=== PATIENT | female | born 1985 | race Caucasian/White ===

== ENCOUNTER 2016-06-09 12:28 | Emergency (ER) | payer MEDICAID, SELFPAY ==
[2016-06-09] MEDS ORDERED: Ketorolac Tromethamine 60 MG/2 ML VIAL ONE (12:56)
[2016-06-09 13:02] LABS: Bilirubin Negative (Negative); Blood, Urine Trace (Negative); Clarity Clear (Clear); Glucose, Urine (Dipstick) Negative (Negative); Leukocyte Negative (Negative); Nitrite Negative (Negative); Protein, Urine (Dipstick) Negative (Neg-Trace)
[2016-06-09 13:07] LABS: Specific Gravity, Urine 1.025 (1.002-1.036)
[2016-06-09 13:13] LABS: Bacteria/HPF Rare-Few HPF (None Seen); Crystals/HPF None Seen HPF (Negative); Hyaline Casts/LPF NONE SEEN LPF (0-3 Hyaline); Other Casts/LPF None Seen LPF (0-3 Hyaline); Oval Fat Bodies/HPF None Seen HPF (None Seen); RBC/HPF 0-3 HPF (0-3); Renal Epithelial None Seen HPF (0-3); Sperm/HPF None Seen HPF (None Seen); Squamous Epithelial 0-3 HPF (0-3); Transitional Epithelial NONE SEEN HPF (0-3); Trichomonas/HPF None Seen HPF (None Seen); WBC/HPF 0-3 HPF (0-3); Yeast-All Forms None Seen HPF (None Seen)
[2016-06-09] MEDS ORDERED: Fentanyl 100 MCG/2 ML VIAL ONE (13:57)
[2016-06-09 14:06] LABS: #Basophils 0.1 thou/uL (0.0-0.2); #Eosinphils 0.3 thou/uL (0.0-0.7); #Lymphocytes 2.9 thou/uL (1.20-3.40); #Monocytes 0.8 thou/uL (0.11-0.59); #Neutrophils 5.6 thou/uL (1.40-6.50); %Basophils 0.9 % (0.0-1.0); %Eosinophils 3.4 % (0.0-10.0); %Lymphocytes 30.4 % (21.0-51.0); %Monocytes 7.8 % (0.0-10.0); %Neutrophils 57.6 % (42.0-75.0); Hemoglobin 13.9 g/dL (12.0-16.0); Mean Corpuscular Hemoglobin 30.8 pg (27.0-31.0); Mean Corpuscular Volume 93.5 fl (81.0-99.0); Mean Platelet Volume 8.1 fL (7.4-10.4); Platelet Count 205 thou/uL (130-400); RBC Distribution Width 13.2 % (11.5-14.5); Red Blood Cell (RBC) Count 4.52 mill/uL (4.20-5.40); White Blood Cell (WBC) Count 9.7 thou/uL (4.8-10.8)
[2016-06-09 14:20] LABS: ALT (SGPT) 10 U/L (0-55); AST (SGOT) 14 U/L (5-34); Albumin 4.3 g/dL (3.5-5.0); Alkaline Phosphatase 49 U/L (40-150); Anion Gap 12 mmol/L (10-20); BUN (Urea Nitrogen) 10 mg/dL (7.0-18.7); Bilirubin, Total 0.3 mg/dL (0.2-1.2); Calc. Creatinine Clearance 0 mL/min (70-130); Calcium 9.3 mg/dL (7.8-10.44); Carbon Dioxide 27 mmol/L (22-29); Chloride 106 mmol/L (98-107); Estimated GFR-MDRD 86; Globulin 3.5 g/dL (2.4-3.5); Glucose 93 mg/dL (70-105); Lipase 21 U/L (8-78); Potassium 3.7 mmol/L (3.5-5.1); Protein, Total 7.8 g/dL (6.0-8.3); Sodium 141 mmol/L (136-145)
--- NOTE | 2016-06-09 21:38 | CT ---
CT ABDOMEN AND PELVIS WITH OUT CONTRAST 06/09/[address] of the abdomen and pelvis was done without oral or IV contrast in a renal stone protocol t o evaluate left flank pain which radiates down the back. Axial slices were acquired, then coronal and sagittal reconstructions were done. The lung bases show no infiltrate or effusion. On the top slice, there is a questionable 5 mm nodule in the left lower lobe. I cannot tell if it is an actual nodule or if it is the end of a vessel levi t started on an slice above the highest one present. Statistically, its significance in this age julien up is low. The liver, spleen, pancreas, adrenal glands, gallbladder, and abdominal aorta were unremarkable with in the limitations of a noncontrast study. There is a large 8 x 6 x 5 cm mass that originates from the upper pole of the left kidney. It is rat her homogeneous in density and has smooth margins, but calcifications are present around its periphe ry. In this age group, the odds are highest that it is a cyst; however, ultrasound must be done to b e sure it is cystic and not solid. It is large enough that it is pushing the left kidney anteriorly. No individual renal calculi are seen in either kidney, though there is some increased density in th e renal pyramids, so the possibility of calculi forming down the line is raised. The bowel is nondistended. There is no sign of obstruction, inflammatory change, free air, or free f luid. CT of the pelvis showed a 2.7 cm rounded cystic area on the left side of the pelvis on slice 62 thro ugh 64. I cannot be certain if it is connected to the left ovary or not. It seems slightly high to b e connected. No free fluid is seen. There are no inflammatory changes in the pelvis. Regarding the lumbar spine, I see no obvious protruding discs to explain any radicular pain. The bon y structures appear intact. IMPRESSION: 1. 8 x 6 x 5 cm left renal mass with peripheral calcifications that is pushing the kidney anter iorly. Ultrasound recommended to determine if it is cystic or solid. 2. At least one small cystic area in the left side of the pelvis, possibly an adnexal origin, t binu it is a little higher than expected. Pelvic ultrasound might be prudent. POS: HOME
--- NOTE | 2016-06-09 21:43 | ULT ---
ULTRASONOGRAPHY OF THE LEFT KIDNEY 06/09/16 Ultrasound of the left kidney was done after a mass was found attached to this kidney on CT. The exa m was accomplished to determine if this was a cystic or solid structure. A large cystic structure or iginates from the upper portion of the left kidney. It is mostly cystic on the inside, though there may be a small amount of debris. Internally, it is mostly smooth but not perfectly so. There are jose angel e coarse calcifications seen along its margin that interfaces with the kidney itself. Maximal transv erse dimension measured was 8.3 cm. The left kidney itself showed no hydronephrosis. IMPRESSION: 8.3 cm cyst arising from the left kidney with coarse peripheral calcifications. It does not meet the criteria of an absolutely simple cyst, though mostly so. Given the pain that the patient is experie ncing and how it is causing some displacement of this left kidney, urological referral is strongly r ecommended to determine correct followup for this finding. Findings for this scan as well as all others done at the same time, plus recommendation for urologic al referral, called to Dr. Dorsey at 1345 on 06/09/16. POS: HOME
--- NOTE | 2016-06-09 21:57 | ULT ---
PELVIC ULTRASOUND WITH ENDOVAGINAL IMAGING 06/09/16 Ultrasonography of the pelvis was performed for evaluation of cystic change seen on a CT scan done e jamil today. Documentary images and worksheets were provided and reviewed. The uterus was normal in appearance and measured 9.9 x 5.5 x 5.5 cm. The endometrium was a normal 7 mm thick. The right ovary was 3.5 cm long, appeared normal, and had good blood flow. The left ovary was 3.1 cm long. Internally, three appears to be a 3.1 cm cyst. Some of the echoes seen in it are artifactual, however, some may not be. I cannot rule out some debris within that cyst. On the CT scan, there was a cystic area that seemed a little higher than expected compared to the adnexa, but no additional c yst was seen on these images. I know the patient has a history of endometriosis, that could potentia lly enter the differential for the former finding. IMPRESSION: 3.1 cm cystic area in the left ovary with some small amounts of interna debris. Followup by ultrasou nd after several cycles and/or gynecological referral for followup might be prudent. POS: HOME
== END 2016-06-09 15:25 | disposition home or self-care (01) ==
LOC: BURERS 12:28
DX: N28.1 Cyst of kidney, acquired (principal); N83.202 Unspecified ovarian cyst, left side; F32.9 Major depressive disorder, single episode, unspecified; F17.210 Nicotine dependence, cigarettes, uncomplicated
CPT/HCPCS: 36415; 74176; 76775; 76856; 80053; 81003; 81015; 83690; 85025; 96372; 96374; J1885; J3010

== ENCOUNTER 2016-11-21 08:47 | Emergency (ER) | payer OTHER, SELFPAY | END 2016-11-21 09:08 | disposition home or self-care (01) | LOC: BURERS 08:47 | DX: B34.9 Viral infection, unspecified (principal); F32.9 Major depressive disorder, single episode, unspecified; F17.210 Nicotine dependence, cigarettes, uncomplicated | CPT/HCPCS: 99283 ==

== ENCOUNTER 2017-11-16 13:47 | Emergency (ER) | payer OTHER ==
--- NOTE | 2017-11-16 18:37 | RAD ---
LEFT HAND THREE VIEWS 11/16/17 No fracture, dislocation, or joint abnormality was seen. The carpal bones were unremarkable in appear ance. The joints appear normal. IMPRESSION: No significant findings. POS: HOME
--- NOTE | 2017-11-16 18:45 | RAD ---
LEFT WRIST THREE VIEWS: 11/16/17 No fracture or carpal abnormality was seen. The carpal relationships seem normal. The distal radius a nd ulna showed no acute change. There is a little cortical thickening along the interosseous margin o f the distal ulna, possibly indicative of an old injury, but certainly not an acute one. IMPRESSION: No acute finding. POS: HOME
== END 2017-11-16 14:42 | disposition home or self-care (01) ==
LOC: BURERS 13:47
DX: S60.212A Contusion of left wrist, initial encounter (principal); F32.9 Major depressive disorder, single episode, unspecified; F17.210 Nicotine dependence, cigarettes, uncomplicated; Y04.0XXA Assault by unarmed brawl or fight, initial encounter
CPT/HCPCS: 29125

== ENCOUNTER 2018-01-19 15:05 | Emergency (ER) | payer OTHER ==
[2018-01-19] MEDS ORDERED: methylPREDNISolone Sod Succ/PF 125 MG/2 ML VIAL ONE (15:16)
[2018-01-19] MEDS ORDERED: Famotidine 20 MG TAB ONE (15:26)
== END 2018-01-19 16:13 | disposition home or self-care (01) ==
LOC: BURERS 15:05
DX: T78.1XXA Other adverse food reactions, not elsewhere classified, initial encounter (principal); F17.210 Nicotine dependence, cigarettes, uncomplicated; X58.XXXA Exposure to other specified factors, initial encounter
CPT/HCPCS: 96361; 96374; J2930

== ENCOUNTER 2018-06-13 12:22 | Emergency (ER) | payer OTHER ==
--- NOTE | 2018-06-13 21:23 | RAD ---
RIGHT HAND THREE VIEWS 06/13/18 No fracture was seen. The various joints appear normal, as do the carpal bones. IMPRESSION: No acute findings. POS: HOME
== END 2018-06-13 13:15 | disposition home or self-care (01) ==
LOC: BURERS 12:22
DX: S63.501A Unspecified sprain of right wrist, initial encounter (principal); F17.210 Nicotine dependence, cigarettes, uncomplicated; W18.30XA Fall on same level, unspecified, initial encounter

== ENCOUNTER 2019-12-21 12:51 | Emergency (ER) | payer BC, OTHER ==
[2019-12-21 13:50] LABS: #Basophils 0.1 thou/uL (0.0-0.2); #Eosinphils 0.3 thou/uL (0.0-0.7); #Lymphocytes 2.9 thou/uL (1.20-3.40); #Monocytes 0.7 thou/uL (0.11-0.59); #Neutrophils 3.8 thou/uL (1.40-6.50); %Basophils 1.4 % (0.0-1.0); %Eosinophils 3.6 % (0.0-10.0); %Lymphocytes 37.7 % (21.0-51.0); %Monocytes 9.3 % (0.0-10.0); %Neutrophils 48.1 % (42.0-75.0); Hemoglobin 13.8 g/dL (12.0-16.0); Mean Corpuscular Volume 96.7 fL (78.0-98.0); Mean Platelet Volume 8.9 fL (7.4-10.4); Platelet Count 225 thou/uL (130-400); RBC Distribution Width 12.5 % (11.5-14.5); Red Blood Cell (RBC) Count 4.59 mill/uL (4.20-5.40); White Blood Cell (WBC) Count 7.8 thou/uL (4.8-10.8)
[2019-12-21 14:03] LABS: Base Excess-Venous -0.7 mmol/L (-2.0 to 3.0); CO2 Tension (PvCO2) 43.9 mmHg (40.0-50.0); Calcium, Ionized 1.15 mmol/L (See Comments:); Chloride 107 mmol/L (98-107); Hemoglobin - Calc 14.9 g/dL (12.0-16.0); Potassium 3.8 mmol/L (3.5-5.1); Sodium 139 mmol/L (138-145); T. Carbon Dioxide 26.3 mmol/L (22.0-28.0); vO2 Saturation-calc 97.5 % (60.0-85.0)
[2019-12-21 14:07] LABS: ALT (SGPT) 15 U/L (8-55); AST (SGOT) 12 U/L (5-34); Albumin 4.2 g/dL (3.5-5.0); Alkaline Phosphatase 57 U/L (40-110); Anion Gap 13 mmol/L (10-20); BUN (Urea Nitrogen) 11 mg/dL (7.0-18.7); Bilirubin, Total 0.3 mg/dL (0.2-1.2); Calc. Creatinine Clearance 0 mL/min (70-130); Carbon Dioxide 23 mmol/L (22-29); Chloride 106 mmol/L (98-107); Estimated GFR-MDRD 79; Globulin 3.6 g/dL (2.4-3.5); Glucose 96 mg/dL (70-105); Potassium 3.9 mmol/L (3.5-5.1); Protein, Total 7.8 g/dL (6.0-8.3); Sodium 138 mmol/L (136-145)
--- NOTE | 2019-12-21 16:51 | RAD ---
CHEST TWO VIEWS: 12/21/19 No major lobar infiltrate or effusion. There is no vascular congestion. It is slightly indistinct around the apex of the heart where the lingula touches it. I could not excl ude some minor lingular scarring or a minor lingular infiltrate. The finding should be correlated wit h the clinical presentation. Otherwise, the appearance of the chest was unremarkable. IMPRESSION: Minimal lingular haziness. Code T POS: HOME
== END 2019-12-21 14:48 | disposition home or self-care (01) ==
LOC: BURERS 12:51
DX: F41.9 Anxiety disorder, unspecified (principal); R06.4 Hyperventilation; Z87.891 Personal history of nicotine dependence
CPT/HCPCS: 36415; 71046; 80053; 82330; 82803; 83880; 85025; 85379; 93005; 94760

== ENCOUNTER 2020-03-14 19:17 | Emergency (ER) | payer BC | END 2020-03-14 20:10 | disposition short-term general hospital (02) | LOC: BURERS 19:17 | DX: I82.401 Acute embolism and thrombosis of unspecified deep veins of right lower extremity (principal) | CPT/HCPCS: 99284 ==

== ENCOUNTER 2021-02-04 09:01 | Outpatient (CLI) | payer BC ==
[2021-02-04] MEDS ORDERED: Iopamidol 370 76% 100 ML VIAL ONE (15:12)
== END 2021-02-04 09:02 | disposition home or self-care (01) ==
LOC: BURCT 09:01
PROVIDERS: ATTEND Urology
DX: N28.1 Cyst of kidney, acquired (principal)
CPT/HCPCS: 74160; Q9967

== ENCOUNTER 2021-06-17 08:50 | Outpatient (CLI) | payer BC | END 2021-06-17 08:51 | disposition home or self-care (01) | LOC: BURCT 08:50 | PROVIDERS: ATTEND Urology | DX: N28.1 Cyst of kidney, acquired (principal) | CPT/HCPCS: 74160 ==

== ENCOUNTER 2023-12-26 11:02 | Emergency (ER) | payer BC, OTHER ==
[2023-12-26] MEDS ORDERED: Acetaminophen 500 MG TAB ONE (11:29)
== END 2023-12-26 11:33 | disposition home or self-care (01) ==
LOC: BURERS 11:02
DX: S13.9XXA Sprain of joints and ligaments of unspecified parts of neck, initial encounter (principal); S00.93XA Contusion of unspecified part of head, initial encounter; F17.210 Nicotine dependence, cigarettes, uncomplicated; V47.0XXA Car driver injured in collision with fixed or stationary object in nontraffic accident, initial encounter; Y93.89 Activity, other specified; Y92.410 Unspecified street and highway as the place of occurrence of the external cause